=== PATIENT | female | born 1965 | race Caucasian/White ===

== ENCOUNTER 2023-08-26 15:10 | Emergency (ER) | payer OTHER, SELFPAY ==
[2023-08-26 15:20] VITALS: BP 118/68
--- NOTE | 2023-08-26 15:58 | ED.GENMED ---
History of Present Illness
General
Chief Complaint: Abdominal Pain
Source: patient
Exam Limitations: none
Time Seen by Provider: 08/26/23 15:45
Nursing documentation reviewed up to this point in time: agreed with
Travel History
Have you had any contact with someone who has COVID-19?: No
Do you have any symptoms of coronavirus? Fever > 100 degrees, chills, cough, shortness of breath, sore throat, loss of taste or smell, muscle aches, or headache?: No
History of Present Illness
History of Present Illness:
Patient to ED with complaint of worsening abdominal pain. Symptoms started 2 weeks ago. Reports right sided pain worse than left. Radiates around to back. Notes boating, increase in belching and passing gas. States at times diarrhea is yellow.
At rare times she does not have diarrhea she states stool is pencil thin. +nausea, no vomiting. Chills but no fever. Had a coloscopy 6 years ago. Polyps x 3. Told to repeat in 4 years but she has not been back. Brought self to ED for eval.
Past History
Past History
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
in 09/2021. She also states that for the past 2 years she gets headaches with orgasms and she has a CT angio of her brain scheduled in 5 days to evaluate these. She also has a carotid ultrasound scheduled in the [facility])
ED Past Surgical History: Appendectomy, , Gynecological (hysterectomy) and Tonsilectomy
Social History
Tobacco: Former smoker (quit x 1 year)
Alcohol: Occasional
Drug: None
Personal:
Living: with family
Employment: Employed
Review of Systems
Review of Systems
All Other Systems: ROS reviewed and negative except as documented in HPI and ROS
Constitutional: Reports no symptoms
EENT: Reports no symptoms
Respiratory: Reports no symptoms
Cardiac: Reports no symptoms
ABD/GI: Reports abdominal pain (diffuse ) and diarrhea
: Reports no symptoms
Musculoskeletal: Reports no symptoms
Skin: Reports no symptoms
Neurological: Reports no symptoms
Psychiatric: Reports no symptoms
Phy Exam
General Physical Exam
General Presentation: well appearing and no apparent distress
General age: appears stated age
General Skin: warm and dry
General Habitus: normal
General Hydration: appears well hydrated
Gastrointestinal Exam
Gastrointestinal Exam: normal bowel sounds, soft, no organomegaly, no pulsatile mass, no cva tenderness and distended
Palpation: left upper quadrant: Moderate tenderness, left lower quadrant: Mild tenderness, right upper quadrant: Moderate tenderness and right lower quadrant: Moderate tenderness
Musculoskeletal Exam
Musculoskeletal Exam: full ROM and neuro vasc intact
Skin Exam
Skin Exam: normal color, warm/dry and no rash
Psychiatric Exam
Psychiatric Exam: normal mood/affect
Course
Orders/Labs/Results
Orders:
Orders
08/26/23 15:58
CT Abd/pel W Iv And Oral Contr Urgent
Comment:
Reason For Exam: DIFFUSE ABD. .PAIN
Iohexol [Omnipaque] See Protocol PO NOW STA
08/26/23 17:17
Complete Blood Count/With Diff Urgent
Comprehensive Metabolic Panel Urgent
Lipase Urgent
TSH Reflex To Free T4 Urgent
08/26/23 19:19
Urinalysis Reflex To Culture Urgent
Date Specimen was Collected: 08/26/23
Time Specimen was Collected: 19:13
Abnormal Lab Results
08/26/23
17:17
MCH 31.2 H pg
(27.0-31.0)
Monocytes % 9.5 H %
(1.7-9.3)
Chloride 108 H mmol/L
(98-107)
BUN 18 H mg/dl
(17)
08/26/23 17:17
08/26/23 17:17
Vital Signs
Initial and Last Documented VS:
Initial Vital Signs
Temp Pulse Resp BP Pulse Ox
98.0 F 82 16 118/68 98
08/26/23 15:20 08/26/23 15:20 08/26/23 15:20 08/26/23 15:20 08/26/23 15:20
Last Documented Vital Signs
Temp Pulse Resp BP Pulse Ox
98.0 F 77 18 126/88 98
08/26/23 15:20 08/26/23 17:30 08/26/23 17:30 08/26/23 17:30 08/26/23 17:30
*Radiology
Radiology exam reviewed: radiology read reviewed
*Pulse Oximetry
Patient hypoxic: no
*Critical Care Note
Total Time (30-74mins, 75-104mins- exclusive of procedures): Not Applicable
ED Attending Note
-
Portions of this chart may have been created with voice recognition software.� Occasional wrong word or��sound alike� substitutions may have occurred due to the inherent limitations of voice recognition software.
Discharge Plan
Departure
Patient Disposition: Home (Routine Discharge)
Date of Disposition: 08/26/23
Time of Disposition: 19:45
Patient with high blood pressure during this ER visit?: No
Condition: Good
Covid-19: Not Applicable
Discharge Problem:
Abdominal pain
Instructions: Abdominal Pain
Prescriptions:
No Action
levothyroxine [Synthroid] 100 MCG tablet
100 mcg PO DAILY
ondansetron 4 MG tablet,disintegrating
4 mg PO TIDPRN PRN (Reason: nausea) Qty: 20 0RF
Referrals:
Justice Stout MD [Active] - Call in 1-3 days for appt
Lexa Briscoe DO [Family Provider] -
Activity Restrictions/Additional Instructions:
Return to the emergency department immediately for any changes in/worseing of your symptoms.
Interventions
Interventions:
*Risk Screen - Suicide Last Done: 08/26/23 17:53
*General Assessment Last Done: 08/26/23 20:20
*Neglect/Abuse Screening Last Done: 08/26/23 17:53
ED- Fall Risk Assessment Last Done: 08/26/23 17:53
*ED COVID-19 Vaccine History Last Done: 08/26/23 15:20
*Nursing Disposition Last Done: 08/26/23 20:04
[facility] Assessment Last Done: 08/26/23 17:53
Discharge Date and Time
Discharge Date/Time: 08/26/23 20:20
[2023-08-26] MEDS: OMNIPAQUE 50 ML PO (16:23)
[2023-08-26 17:24] LABS: % Basophils 0.8 % (0-2); % Immature Granulocytes 0.3 % (0-0.5); % Lymphocytes 32.4 % (20.5-51.1); % Monocytes 9.5 % (1.7-9.3); Absolute Basophils 0.1 10^3/uL (0-0.2); Absolute Eosinophils 0.1 10^3/uL (0-0.7); Absolute Monocytes 0.6 10^3/uL (0.1-0.6); Absolute Neutrophils 3.3 10^3/uL (1.4-6.5); Hematocrit 38.3 % (37.0-47.0); Hemoglobin 13.2 g/dL (12.0-16.0); Mean Corp Hgb Conc. 34.5 g/dL (33.0-37.0); Mean Corpuscular Hgb 31.2 pg (27.0-31.0); Mean Corpuscular Volume 90.5 fL (81.0-99.0); Mean Platelet Volume 9.3 fL (7.4-10.4); Nucleated Red Blood Cells % 0 %; Platelet Count 201 10^3/uL (130-400); Red Blood Cell Count 4.23 10^6/uL (4.20-5.40); Red Cell Dist. Width 12.3 % (11.5-14.5)
[2023-08-26 17:30] VITALS: BP 126/88
[2023-08-26 17:48] LABS: ALT (SGPT) 18 U/L (0-35); AST (SGOT) 20 U/L (14-36); Albumin 4.1 g/dl (3.5-5.0); Alkaline Phosphatase 60 U/L (38-126); Blood Urea Nitrogen 18 mg/dl (7-17); Calcium 8.7 mg/dl (8.4-10.2); Carbon Dioxide 26 mmol/L (22-30); Chloride 108 mmol/L (98-107); Glucose 93 mg/dl (70-99); Lipase 103 U/L (23-300); Potassium 3.9 mmol/L (3.5-5.1); Sodium 139 mmol/L (135-145); Total Bilirubin 0.3 mg/dl (0.2-1.3); Total Protein 6.3 g/dl (6.3-8.2); eGFR > 60.00
[2023-08-26 18:19] LABS: TSH Reflex To Free T4 3.58 uIU/ml (0.47-4.68)
[2023-08-26 19:25] LABS: Urine Albumin Negative (Neg - Trace); Urine Bilirubin Negative (Negative); Urine Character Clear (Clear); Urine Color Straw; Urine Glucose Negative (Negative); Urine Ketone Negative (Negative); Urine Leukocyte Negative (Negative); Urine Nitrite Negative (Negative); Urine Occult Blood Negative (Negative); Urine Specific Gravity 1.005 (<1.030); Urine Urobilinogen Negative (Neg - 1+)
== END 2023-08-26 20:20 | disposition home or self-care (01) ==
LOC: EMR 15:10
PROVIDERS: Nurse Practitioner; EMERGENCY PHYSICIAN Emergency Medicine; FAMILY PHYSICIAN Family Medicine
DX: R10.9 Unspecified abdominal pain (principal); R19.7 Diarrhea, unspecified; E03.9 Hypothyroidism, unspecified; I65.23 Occlusion and stenosis of bilateral carotid arteries; Z87.891 Personal history of nicotine dependence; Z90.49 Acquired absence of other specified parts of digestive tract; Z90.710 Acquired absence of both cervix and uterus
CPT/HCPCS: 99284; 74177; 80053; 81003; 83690; 84443; 85025; Q9967

== ENCOUNTER → 2023-10-15 15:57 | Outpatient (REF) | payer OTHER, SELFPAY | LOC: HWWDC 15:57 | PROVIDERS: ATTENDING PHYSICIAN Obstetrics & Gynecology; FAMILY PHYSICIAN Nurse Practitioner Family | DX: Z12.31 Encounter for screening mammogram for malignant neoplasm of breast (principal) | CPT/HCPCS: 77063; 77067 ==

== ENCOUNTER 2023-10-24 06:30 | Day surgery (SDC) | payer OTHER, SELFPAY ==
[2023-10-15 08:39] VITALS: BMI 25.4
[2023-10-15 09:55] LABS: Hematocrit 42.2 % (37.0-47.0); Hemoglobin 14.7 g/dL (12.0-16.0); Mean Corp Hgb Conc. 34.8 g/dL (33.0-37.0); Mean Corpuscular Hgb 31.7 pg (27.0-31.0); Mean Corpuscular Volume 90.9 fL (81.0-99.0); Mean Platelet Volume 10.5 fL (7.4-10.4); Platelet Count 201 10^3/uL (130-400); Red Blood Cell Count 4.64 10^6/uL (4.20-5.40); Red Cell Dist. Width 12.1 % (11.5-14.5); White Blood Cell Count 4.7 10^3/uL (4.8-10.8)
[2023-10-15 10:20] LABS: Blood Urea Nitrogen 13 mg/dl (7-17); Calcium 9.2 mg/dl (8.4-10.2); Carbon Dioxide 26 mmol/L (22-30); Chloride 106 mmol/L (98-107); Estimated Creatinine Clearance 82 ml/min; Glucose 93 mg/dl (70-99); Sodium 139 mmol/L (135-145); eGFR > 60.00
[2023-10-24] VITALS (11 sets, daily range): BP systolic 119–136; BP diastolic 61–108; BMI 25.4
[2023-10-24] MEDS: HEPARIN 5000 UNITS SC (08:57)
[2023-10-24] MEDS: TYLENOL 1000 MG PO (08:57)
[2023-10-24] MEDS: NORMOSOL-R 1000 IV (08:57)
[2023-10-24] MEDS: DILAUDID 0.5 MG IV (11:41)
[2023-10-24] MEDS: ZOFRAN 4 MG IV (11:52)
[2023-10-24] MEDS: COMPAZINE 5 MG IV (12:11)
== END 2023-10-24 14:10 | disposition home or self-care (01) ==
LOC: SDS 06:30
PROVIDERS: ATTENDING PHYSICIAN Surgery; FAMILY PHYSICIAN Nurse Practitioner Family
DX: K81.1 Chronic cholecystitis (principal); K80.70 Calculus of gallbladder and bile duct without cholecystitis without obstruction
CPT/HCPCS: 47563; 88304; 36415; 74300; 76000; 80048; 85027; 93005; A4300

== ENCOUNTER → 2023-12-25 06:33 | Day surgery (SDC) | payer OTHER, SELFPAY | LOC: GI 06:33 | PROVIDERS: ATTENDING PHYSICIAN Surgery; FAMILY PHYSICIAN Nurse Practitioner Family | DX: Z12.11 Encounter for screening for malignant neoplasm of colon (principal); D12.5 Benign neoplasm of sigmoid colon; D12.8 Benign neoplasm of rectum; K63.5 Polyp of colon; Z86.010 Personal history of colon polyps | CPT/HCPCS: 45385; 88305 ==